=== PATIENT | female | born 1970 | race African-American/Black ===

== ENCOUNTER 2017-07-30 14:03 | Inpatient (IN) | payer SELFPAY ==
[~2017-07-30] VITALS: Ht 175.3 cm; Wt 95.1 kg
[2017-07-30 14:05] VITALS: BP 165/74; PULSE 95; RESP 20; TEMP 98.5; O2SAT 99
[2017-07-30 14:57] LABS: AUTOMATED NEUTROPHIL # 4.3 TH/MM3 (1.8-7.7); BASOPHIL # 0.3 TH/MM3 (0-0.2); BASOPHIL % 3.5 % (0.0-2.0); EOSINOPHIL # 0.4 TH/MM3 (0-0.4); EOSINOPHIL % 5.8 % (0.0-4.0); LYMPH % 23.4 % (9.0-44.0); LYMPHOCYTE # 1.7 TH/MM3 (1.0-4.8); MEAN CELL VOLUME 55.5 FL (80.0-100.0); MEAN CORPUSCULAR HEMOGLOBIN 15.5 PG (27.0-34.0); MONO % 8.8 % (0.0-8.0); NEUT % 58.5 % (16.0-70.0); PLATELET COUNT 698 TH/MM3 (150-450); RED BLOOD COUNT 2.85 MIL/MM3 (4.00-5.30); RED CELL DISTRIBUTION WIDTH 21.2 % (11.6-17.2); WHITE BLOOD COUNT 7.3 TH/MM3 (4.0-11.0)
[2017-07-30 15:02] LABS: BLOOD, URINE MOD (NEG); COMMENT (UR) CULT NOT INDICATED; CULTURE IF INDICATED CULT NOT INDICATED; GLUCOSE,URINE NEG (NEG); KETONE, URINE NEG (NEG); MUCUS URINE FEW /lpf (OCC); NITRITE,URINE NEG (NEG); SQUAMOUS EPITHELIAL CELL URINE <1 /hpf (0-5); URINE COLOR YELLOW (YELLW/STRAW)
[2017-07-30 15:04] LABS: HEMO FLAGS AUTO DIFF; MEAN CORPUSCULAR HGB CONC 27.9 % (32.0-36.0)
[2017-07-30 15:06] LABS: HEMATOCRIT 15.8 % (35.0-46.0)
[2017-07-30 15:15] VITALS: BP 139/67; PULSE 89; RESP 17; TEMP 97.8; O2SAT 96
[2017-07-30] MEDS ORDERED: SODIUM CHLOR 0.9% 250 ML INJ 250 ML IV ONE (15:15)
[2017-07-30] MEDS ORDERED: SODIUM CHLOR 0.9% 1000 ML INJ 1,000 ML IV ONE (15:20)
[2017-07-30 15:28] LABS: BICARBONATE 25.2 MEQ/L (21.0-32.0); POTASSIUM 4.3 MEQ/L (3.5-5.1)
[2017-07-30 15:33] LABS: PLATELET ESTIMATE SMEAR HIGH (NORMAL); PLATELET MORPHOLOGY ENLARGED (NORMAL); SCAN/DIFF AUTO DIFF CONFIRMED
--- NOTE | 2017-07-30 17:42 | PD ---
HPI Chief Complaint: Syncope/Near-Syncope Time Seen by Provider: 14:59 Travel History International Travel<30 days: No Contact w/Intl Traveler<30days: No Traveled to known affect area: No History of Present Illness HPI 47-year-old female presents to emergency department complaining of multiple syncopal episodes for 3-4 months. Patient states that today she was on the playground today and started having blurred vision and dizziness and passed out. She believes she was out for a few seconds. States that she has lightheadedness and blurred vision as the usual symptoms prior to passing out. Patient denies fever or chills. She says she does have increased shortness of breath with exertion. Patient says she has been "bleeding for a year". Patient says that she has had vaginal bleeding that has been evaluated by her primary care physician. She was not able follow-up for this. Patient denies fever, chills, chest pain, abdominal pain. States that she has a history of hypertension that is controlled with medication. PFSH Past Medical History Medical History: Denies Significant Hx Diminished Hearing: No Tetanus Vaccination: > 5 Years Influenza Vaccination: No ?: Not Tubal Ligation: Yes Past Surgical History Gynecologic Surgery: Yes Social History Alcohol Use: No Tobacco Use: No Substance Use: No Allergies-Medications (Allergen,Severity, Reaction): Coded Allergies: No Known Allergies (Verified Allergy, Unknown, 07/30/17) Reported Meds & Prescriptions Reported Meds & Active Scripts Active No Active Prescriptions or Reported Medications Review of Systems Except as stated in HPI: all other systems reviewed are Neg Physical Exam Narrative GENERAL: Well-developed well-nourished in no apparent distress SKIN: Focused skin assessment warm/dry. HEAD: Atraumatic. Normocephalic. EYES: Pupils equal and round. No scleral icterus. No injection or drainage. ENT: No nasal bleeding or discharge. Mucous membranes pink and moist. NECK: Trachea midline. No JVD. CARDIOVASCULAR: Regular rate and rhythm. No murmur appreciated. RESPIRATORY: No accessory muscle use. Clear to auscultation. Breath sounds equal bilaterally. GASTROINTESTINAL: Abdomen soft, non-tender, nondistended. Hepatic and splenic margins not palpable. MUSCULOSKELETAL: No obvious deformities. No clubbing. No cyanosis. No edema. NEUROLOGICAL: Awake and alert. No obvious cranial nerve deficits. Motor grossly within normal limits. Normal speech. PSYCHIATRIC: Appropriate mood and affect; insight and judgment normal. Data Data Last Documented VS Vital Signs Date Time Temp Pulse Resp B/P (MAP) Pulse Ox O2 Delivery O2 Flow Rate FiO2 07/30/17 15:15 97.8 89 17 139/67 (91) 96 Room Air Orders Orders Electrocardiogram (07/30/17 ) Complete Blood Count With Diff (07/30/17 14:13) Basic Metabolic Panel (Bmp) (07/30/17 14:13) Urinalysis - C+S If Indicated (07/30/17 14:32) Type And Screen (07/30/17 15:07) Red Blood Cells (Rbc) (07/30/17 15:07) Blood Product Administration (07/30/17 15:07) Sodium Chlor 0.9% 250 Ml Inj (Ns 250 Ml (07/30/17 15:15) Sodium Chlor 0.9% 1000 Ml Inj (Ns 1000 M (07/30/17 15:20) Admit To Inpatient (07/30/17 ) Vital Signs (Adult) KEYSHAWN.Q4H (07/30/17 16:58) Activity Oob With Assistance (07/30/17 16:58) Diet Regular Basic (07/30/17 Dinner) Resp Oxygen Rolando C Titrat 1-4 L (07/30/17 ) Inpatient Certification (07/30/17 ) Admit Order (Ed Use Only) (07/30/17 17:01) Labs Laboratory Tests Test 07/30/17 14:30 07/30/17 14:33 White Blood Count 7.3 TH/MM3 Red Blood Count 2.85 MIL/MM3 Hemoglobin 4.4 GM/DL Hematocrit 15.8 % Mean Corpuscular Volume 55.5 FL Mean Corpuscular Hemoglobin 15.5 PG Mean Corpuscular Hemoglobin Concent 27.9 % Red Cell Distribution Width 21.2 % Platelet Count 698 TH/MM3 Mean Platelet Volume 8.2 FL Neutrophils (%) (Auto) 58.5 % Lymphocytes (%) (Auto) 23.4 % Monocytes (%) (Auto) 8.8 % Eosinophils (%) (Auto) 5.8 % Basophils (%) (Auto) 3.5 % Neutrophils # (Auto) 4.3 TH/MM3 Lymphocytes # (Auto) 1.7 TH/MM3 Monocytes # (Auto) 0.6 TH/MM3 Eosinophils # (Auto) 0.4 TH/MM3 Basophils # (Auto) 0.3 TH/MM3 CBC Comment AUTO DIFF Differential Comment AUTO DIFF CONFIRMED Platelet Estimate HIGH Platelet Morphology Comment ENLARGED Blood Urea Nitrogen 5 MG/DL Creatinine 0.59 MG/DL Random Glucose 134 MG/DL Calcium Level 9.1 MG/DL Sodium Level 137 MEQ/L Potassium Level 4.3 MEQ/L Chloride Level 104 MEQ/L Carbon Dioxide Level 25.2 MEQ/L Anion Gap 8 MEQ/L Estimat Glomerular Filtration Rate 131 ML/MIN Urine Color YELLOW Urine Turbidity CLEAR Urine pH 6.0 Urine Specific [place] 1.015 Urine Protein TRACE mg/dL Urine Glucose (UA) NEG mg/dL Urine Ketones NEG mg/dL Urine Occult Blood MOD Urine Nitrite NEG Urine Bilirubin NEG Urine Urobilinogen LESS THAN 2.0 MG/DL Urine Leukocyte Esterase LARGE Urine RBC 17 /hpf Urine WBC 6 /hpf Urine Squamous Epithelial Cells <1 /hpf Urine Mucus FEW /lpf Microscopic Urinalysis Comment CULT NOT INDICATED MDM Medical Decision Making Medical Screen Exam Complete: Yes Emergency Medical Condition: Yes Differential Diagnosis Anemia, dehydration, metabolic disturbance Narrative Course 47-year-old female presents to emergency department complaining of multiple syncopal episodes for 3-4 months. Patient states that today she was on the playground today and started having blurred vision and dizziness and passed out. She believes she was out for a few seconds. States that she has lightheadedness and blurred vision as the usual symptoms prior to passing out. Patient denies fever or chills. She says she does have increased shortness of breath with exertion. Patient says she has been "bleeding for a year". Patient says that she has had vaginal bleeding that has been evaluated by her primary care physician. She was not able follow-up for this. Patient denies fever, chills, chest pain, abdominal pain. States that she has a history of hypertension that is controlled with medication. Vital signs stable Laboratory Tests Test 07/30/17 14:30 07/30/17 14:33 White Blood Count 7.3 TH/MM3 Red Blood Count 2.85 MIL/MM3 Hemoglobin 4.4 GM/DL Hematocrit 15.8 % Mean Corpuscular Volume 55.5 FL Mean Corpuscular Hemoglobin 15.5 PG Mean Corpuscular Hemoglobin Concent 27.9 % Red Cell Distribution Width 21.2 % Platelet Count 698 TH/MM3 Mean Platelet Volume 8.2 FL Neutrophils (%) (Auto) 58.5 % Lymphocytes (%) (Auto) 23.4 % Monocytes (%) (Auto) 8.8 % Eosinophils (%) (Auto) 5.8 % Basophils (%) (Auto) 3.5 % Neutrophils # (Auto) 4.3 TH/MM3 Lymphocytes # (Auto) 1.7 TH/MM3 Monocytes # (Auto) 0.6 TH/MM3 Eosinophils # (Auto) 0.4 TH/MM3 Basophils # (Auto) 0.3 TH/MM3 CBC Comment AUTO DIFF Differential Comment AUTO DIFF CONFIRMED Platelet Estimate HIGH Platelet Morphology Comment ENLARGED Blood Urea Nitrogen 5 MG/DL Creatinine 0.59 MG/DL Random Glucose 134 MG/DL Calcium Level 9.1 MG/DL Sodium Level 137 MEQ/L Potassium Level 4.3 MEQ/L Chloride Level 104 MEQ/L Carbon Dioxide Level 25.2 MEQ/L Anion Gap 8 MEQ/L Estimat Glomerular Filtration Rate 131 ML/MIN Urine Color YELLOW Urine Turbidity CLEAR Urine pH 6.0 Urine Specific [place] 1.015 Urine Protein TRACE mg/dL Urine Glucose (UA) NEG mg/dL Urine Ketones NEG mg/dL Urine Occult Blood MOD Urine Nitrite NEG Urine Bilirubin NEG Urine Urobilinogen LESS THAN 2.0 MG/DL Urine Leukocyte Esterase LARGE Urine RBC 17 /hpf Urine WBC 6 /hpf Urine Squamous Epithelial Cells <1 /hpf Urine Mucus FEW /lpf Microscopic Urinalysis Comment CULT NOT INDICATED Patient has significant anemia. I presented the treatment plan for the patient and she refused blood transfusions multiple times. Upon admission patient finally agreed and she will be admitted for observation and blood transfusion. Patient was stable upon admission for observation. Thank you Dr. Viramontes for taking this patient. Diagnosis Primary Impression: Anemia Qualified Codes: D62 - Acute posthemorrhagic anemia Admitting Information Admitting Physician Requests: Observation Scripts No Active Prescriptions or Reported Meds Condition: Stable Gema Gomez Jul 30, 2017 17:42
--- NOTE | 2017-07-30 18:25 | HHI.HP ---
HPI Service Family Medicine Primary Care Physician No Primary Care Physician Admission Diagnosis dizziness, anemia Diagnoses: International Travel<30 Days: No Contact w/Intl Traveler<30days: No Known Affected Area: No History of Present Illness Mrs. Randall is a 47 y/o F presenting to the ED with vaginal bleeding and fatigue. Patient reports 1-year of abnormal vaginal bleeding using up to 8-12 pads daily. She states the bleeding has been constant so much that she is unaware when she is having her cycle. She also endorses passing clots up to baseball size intermittently with her bleeding. She also reports a sharp right- sided groin pain up to 6 out of 10 on the pain scale, but does not endorse pain currently. She was previously seen [facility] the [facility] for a routine Pap smear, and then was referred to the [facility] due to abnormal cervix on exam. She was given orders for A routine ultrasound with a Pap completed at the [facility] which showed no intraepithelial lesion and was negative for HPV. Ultrasound was concerning for possible cervical mass with MRI recommended. However, patient was unable to be seen for reevaluation at the [facility] due to financial constraints. Today she presents with 1 week of severe fatigue with 2 falls. She states that she has been dizzy every day this week and had a fall on Wednesday and today before presenting to the ED. The fall and Wednesday she lost consciousness for approximately 2-3 minutes with her fall today resulting in a loss of consciousness for approximately 1 minute. Today she fell while changing clothes onto her bed and then ultimately landed on her left shoulder and hip. Her only other complaint is nausea throughout this entire time frame with intermittent episodes of nonbloody vomiting she does report that she has been taking [id number] iron supplements but is unsure of the dosage. Otherwise she has no complaints and denies any fevers, diaphoretic episodes, chest pain, shortness of breath, or calf tenderness. Patient does report a 10 pound weight loss over the past week. (Christiano Viramontes MD R2) Review of Systems Constitutional: COMPLAINS OF: Weight loss (10lbs over last week ), Dizziness, DENIES: Fever Eyes: COMPLAINS OF: Blurred vision, DENIES: Double Vision Ears, nose, mouth, throat: COMPLAINS OF: Throat pain, DENIES: Running Nose Respiratory: COMPLAINS OF: Cough, Sputum production, Shortness of breath Cardiovascular: COMPLAINS OF: Dyspnea on Exertion, DENIES: Chest pain Gastrointestinal: COMPLAINS OF: Nausea, Vomiting, DENIES: Abdominal pain, Constipation, Diarrhea Genitourinary: COMPLAINS OF: Abnormal vaginal bleeding, DENIES: Dysuria Musculoskeletal: DENIES: Joint pain, Back pain Integumentary: DENIES: Rash Hematologic/lymphatic: DENIES: Lymphadenopathy Immunologic/allergic: DENIES: Urticaria Neurologic: COMPLAINS OF: Headache Psychiatric: DENIES: Mood changes (Christiano Viramontes MD R2) Past Family Social History Past Medical History Denies any PMHx 4 uncomplicated SVDs at full term 1 miscarriage <20weeks, last Tubal ligation Cervical biopsy 1988, negative Past Surgical History Tubal Ligation Cervical Biopsy (Christiano Viramontes MD R2) Allergies: Coded Allergies: LON Inhibitors (Verified Allergy, Severe, Angioedema , 07/31/17) Family History Mother - healthy, living Father - CHF, Brother - , DM Social History Lives with daughter and 3 grandchildren in a house. Tobacco - No reported history Alcohol - No reported history Illicit - No reported history (Christiano Viramontes MD R2) Physical Exam Vital Signs Vital Signs Date Time Temp Pulse Resp B/P (MAP) Pulse Ox O2 Delivery O2 Flow Rate FiO2 07/30/17 15:15 97.8 89 17 139/67 (91) 96 Room Air 07/30/17 14:05 98.5 95 20 165/74 (104) 99 Room Air Physical Exam GENERAL: Well-nourished, well-developed patient lying in bed in no acute distress. SKIN: Pale, cool, and dry. No rash. HEENT: Atraumatic, normocephalic with EOMI. PERRLA. Scleral icterus slightly pale. Mucous membranes dry. No rhinorrhea. No LAD or thyroid abnormality appreciated. Subtle JVD appreciated upon inspection. CARDIOVASCULAR: Regular rate and rhythm. 2/6 systolic ejection murmur likely secondary to flow murmur consistent with severe anemia. RESPIRATORY: Clear to auscultation bilaterally with no CRW. No increased work of breathing. GASTROINTESTINAL: Abdomen soft, nondistended with positive bowel sounds. Patient with tenderness to palpation in the lower 2 quadrants and the suprapubic area. No hepatosplenomegaly appreciated. MUSCULOSKELETAL: No cyanosis or edema. Strength grossly WNL. Left shoulder: Range of motion intact, but movement does elicit pain. No trauma on inspection. No loss of sensation with 2+ pulses. Left hip: No trauma on inspection without hematoma. Patient ambulating well. No loss of sensation with 2+ pulses. BACK: Nontender without obvious deformity. No CVA tenderness. NEURO/PSYCH: Afocal. Awake, alert, and oriented x3. Normal speech and judgment. Laboratory Laboratory Tests Test 07/30/17 14:30 07/30/17 14:33 White Blood Count 7.3 Red Blood Count 2.85 Hemoglobin 4.4 Hematocrit 15.8 Mean Corpuscular Volume 55.5 Mean Corpuscular Hemoglobin 15.5 Mean Corpuscular Hemoglobin Concent 27.9 Red Cell Distribution Width 21.2 Platelet Count 698 Mean Platelet Volume 8.2 Neutrophils (%) (Auto) 58.5 Lymphocytes (%) (Auto) 23.4 Monocytes (%) (Auto) 8.8 Eosinophils (%) (Auto) 5.8 Basophils (%) (Auto) 3.5 Neutrophils # (Auto) 4.3 Lymphocytes # (Auto) 1.7 Monocytes # (Auto) 0.6 Eosinophils # (Auto) 0.4 Basophils # (Auto) 0.3 CBC Comment AUTO DIFF Differential Comment AUTO DIFF CONFIRMED Platelet Estimate HIGH Platelet Morphology Comment ENLARGED Blood Urea Nitrogen 5 Creatinine 0.59 Random Glucose 134 Calcium Level 9.1 Sodium Level 137 Potassium Level 4.3 Chloride Level 104 Carbon Dioxide Level 25.2 Anion Gap 8 Estimat Glomerular Filtration Rate 131 Urine Color YELLOW Urine Turbidity CLEAR Urine pH 6.0 Urine Specific [place] 1.015 Urine Protein TRACE Urine Glucose (UA) NEG Urine Ketones NEG Urine Occult Blood MOD Urine Nitrite NEG Urine Bilirubin NEG Urine Urobilinogen LESS THAN 2.0 Urine Leukocyte Esterase LARGE Urine RBC 17 Urine WBC 6 Urine Squamous Epithelial Cells <1 Urine Mucus FEW Microscopic Urinalysis Comment CULT NOT INDICATED (Christiano Viramontes MD R2) Result Diagram: 07/30/17 1430 07/30/17 1430 Caprini VTE Risk Assessment Caprini VTE Risk Assessment: Mod/High Risk (score >= 2) Caprini Risk Assessment Model Point Value = 1 Point Value = 2 Point Value = 3 Point Value = 5 Age 41-60 Minor surgery BMI > 25 kg/m2 Swollen legs Varicose veins or History of unexplained or recurrent spontaneous Oral contraceptives or hormone replacement Sepsis (< 1 month) Serious lung disease, including pneumonia (< 1 month) Abnormal pulmonary function Acute myocardial infarction Congestive heart failure (< 1 month) History of inflammatory bowel disease Medical patient at bed rest Age 61-74 Arthroscopic surgery Major open surgery (> 45 min) Laparoscopic surgery (> 45 min) Malignancy Confined to bed (> 72 hours) Immobilizing plaster cast Central venous access Age >= 75 History of VTE Family history of VTE Factor V Leiden Prothrombin [id number] Lupus anticoagulant Anticardiolipin antibodies Elevated serum homocysteine Heparin-induced thrombocytopenia Other congenital or acquired thrombophilia Stroke (< 1 month) Elective arthroplasty Hip, pelvis, or leg fracture Acute spinal cord injury (< 1 month) Prophylaxis Regimen Total Risk Factor Score Risk Level Prophylaxis Regimen 0-1 Low Early ambulation 2 Moderate Order ONE of the following: *Sequential Compression Device (SCD) *Heparin 5000 units SQ BID 3-4 Higher Order ONE of the following medications: *Heparin 5000 units SQ TID *Enoxaparin/Lovenox 40 mg SQ daily (WT < 150 kg, CrCl > 30 mL/min) *Enoxaparin/Lovenox 30 mg SQ daily (WT < 150 kg, CrCl > 10-29 mL/min) *Enoxaparin/Lovenox 30 mg SQ BID (WT < 150 kg, CrCl > 30 mL/min) AND/OR *Sequential Compression Device (SCD) 5 or more Highest Order ONE of the following medications: *Heparin 5000 units SQ TID (Preferred with Epidurals) *Enoxaparin/Lovenox 40 mg SQ daily (WT < 150 kg, CrCl > 30 mL/min) *Enoxaparin/Lovenox 30 mg SQ daily (WT < 150 kg, CrCl > 10-29 mL/min) *Enoxaparin/Lovenox 30 mg SQ BID (WT < 150 kg, CrCl > 30 mL/min) AND *Sequential Compression Device (SCD) (Christiano Viramontes MD R2) Assessment and Plan Assessment and Plan Mrs. Randall is a 47 y/o admitted for symptomatic anemia requiring blood transfusion. Code Status Full Code Discussed Condition With Mrs. Gomez, DUNG PA Dr. Pederson (Christiano Viramontes MD R2) Attending Attestation Patient seen and examined. Case reviewed and discussed with the resident team. Agree with plan of care as discussed with me and documented in the resident note. met pt in ED with Dr Viramontes. poor woman is so anemic she cannot function without blood (Monika Pederson MD) Problem List: (1) Anemia ICD Codes: D64.9 - Anemia, unspecified Status: Acute Plan: Patient admitted for symptomatic anemia secondary to abnormal vaginal bleeding Imaging/studies/orders: -CBC: H/H 4.4/15.8, MCV 55, platelets 698 -Iron profile ordered -CMP: Within normal limits -Type and screen -2 units PRBC ordered with repeat H/H -Normal saline at 100 mL per hour -Ultrasound: Enlarged heterogeneous uterus with leiomyomatous change. Decreased echogenicity and lack of definition of the cervix. A mass could have this appearance. This area measures approximately 4.6 cm in greatest dimension. This area could be better defined with a pelvic MRI. -Pap smear: Negative for intraepithelial lesion or malignancy. Reactive cellular changes associated with repair. HPV screen negative. -Pelvic MRI ordered (2) Fall ICD Codes: W19.XXXA - Unspecified fall, initial encounter Status: Acute Plan: Patient with initial fall due to symptomatic anemia onto the left side -Left shoulder x-ray: Pending -Left hip x-ray: Pending (3) Nutrition, metabolism, and development symptoms ICD Codes: R63.8 - Other symptoms and signs concerning food and fluid intake Status: Acute Plan: Fluids: Normal saline at 100 mL per hour Diet: Regular diet as tolerated Electrolytes: Within normal limits (4) Medical contraindication to deep vein thrombosis (DVT) prophylaxis ICD Codes: Z53.09 - Procedure and treatment not carried out because of other contraindication Status: Acute Plan: Patient currently admitted for symptomatic anemia secondary to vaginal bleeding, hold pharmacologic DVT prophylaxis at this time SCDs (Christiano Viramontes MD R2) Problem Qualifiers (1) Anemia: Qualified Codes: D62 - Acute posthemorrhagic anemia (2) Fall: Qualified Codes: W19.XXXA - Unspecified fall, initial encounter Christiano Viramontes MD R2 Jul 30, 2017 18:25 Monika Pederson MD Jul 31, 2017 16:32
[2017-07-30] MEDS ORDERED: NALOXONE HCL 0.4 MG/ML AMP IV PUSH PRN (18:45)
[2017-07-30] MEDS ORDERED: ACETAMINOPHEN 325 MG TAB PO PRN (18:45)
[2017-07-30] MEDS ORDERED: ONDANSETRON HCL 4 MG/2 ML VIAL IVP PRN (18:45)
[2017-07-30] MEDS ORDERED: DOCUSATE SODIUM 50 MG/SENNA 8.6 MG TAB PO PRN (18:45)
[2017-07-30] MEDS ORDERED: SODIUM CHLORIDE 0.9% FLUSH 10 ML FLUSH IV FLUSH PRN (18:45)
[2017-07-30 19:12] VITALS: BP 154/71; PULSE 98; RESP 18; O2SAT 100
--- NOTE | 2017-07-30 19:21 | PD ---
Data Data Last Documented VS Vital Signs Date Time Temp Pulse Resp B/P (MAP) Pulse Ox O2 Delivery O2 Flow Rate FiO2 07/30/17 15:15 97.8 89 17 139/67 (91) 96 Room Air Orders Orders Electrocardiogram (07/30/17 ) Complete Blood Count With Diff (07/30/17 14:13) Basic Metabolic Panel (Bmp) (07/30/17 14:13) Urinalysis - C+S If Indicated (07/30/17 14:32) Type And Screen (07/30/17 15:07) Red Blood Cells (Rbc) (07/30/17 15:07) Blood Product Administration (07/30/17 15:07) Sodium Chlor 0.9% 250 Ml Inj (Ns 250 Ml (07/30/17 15:15) Sodium Chlor 0.9% 1000 Ml Inj (Ns 1000 M (07/30/17 15:20) Admit To Inpatient (07/30/17 ) Vital Signs (Adult) KEYSHAWN.Q4H (07/30/17 16:58) Activity Oob With Assistance (07/30/17 16:58) Diet Regular Basic (07/30/17 Dinner) Resp Oxygen Rolando C Titrat 1-4 L (07/30/17 ) Inpatient Certification (07/30/17 ) Admit Order (Ed Use Only) (07/30/17 17:01) Labs Laboratory Tests Test 07/30/17 14:30 07/30/17 14:33 White Blood Count 7.3 TH/MM3 Red Blood Count 2.85 MIL/MM3 Hemoglobin 4.4 GM/DL Hematocrit 15.8 % Mean Corpuscular Volume 55.5 FL Mean Corpuscular Hemoglobin 15.5 PG Mean Corpuscular Hemoglobin Concent 27.9 % Red Cell Distribution Width 21.2 % Platelet Count 698 TH/MM3 Mean Platelet Volume 8.2 FL Neutrophils (%) (Auto) 58.5 % Lymphocytes (%) (Auto) 23.4 % Monocytes (%) (Auto) 8.8 % Eosinophils (%) (Auto) 5.8 % Basophils (%) (Auto) 3.5 % Neutrophils # (Auto) 4.3 TH/MM3 Lymphocytes # (Auto) 1.7 TH/MM3 Monocytes # (Auto) 0.6 TH/MM3 Eosinophils # (Auto) 0.4 TH/MM3 Basophils # (Auto) 0.3 TH/MM3 CBC Comment AUTO DIFF Differential Comment AUTO DIFF CONFIRMED Platelet Estimate HIGH Platelet Morphology Comment ENLARGED Blood Urea Nitrogen 5 MG/DL Creatinine 0.59 MG/DL Random Glucose 134 MG/DL Calcium Level 9.1 MG/DL Sodium Level 137 MEQ/L Potassium Level 4.3 MEQ/L Chloride Level 104 MEQ/L Carbon Dioxide Level 25.2 MEQ/L Anion Gap 8 MEQ/L Estimat Glomerular Filtration Rate 131 ML/MIN Urine Color YELLOW Urine Turbidity CLEAR Urine pH 6.0 Urine Specific [place] 1.015 Urine Protein TRACE mg/dL Urine Glucose (UA) NEG mg/dL Urine Ketones NEG mg/dL Urine Occult Blood MOD Urine Nitrite NEG Urine Bilirubin NEG Urine Urobilinogen LESS THAN 2.0 MG/DL Urine Leukocyte Esterase LARGE Urine RBC 17 /hpf Urine WBC 6 /hpf Urine Squamous Epithelial Cells <1 /hpf Urine Mucus FEW /lpf Microscopic Urinalysis Comment CULT NOT INDICATED MDM Supervised Visit with THERESE: Yes Narrative Course The history, exam, and medical decision-making in the associated midlevel provider note were completed with my assistance. I reviewed and agree with the findings presented. I attest that I had a [id number] encounter with the patient on the same day, and personally performed and documented my assessment and findings in the medical record. *My assessment and Findings: This is a patient who presents to the emergency department with syncope. She had an ultrasound at the outpatient clinic demonstrating a cervical mass and a thickened endometrium. She has a hemoglobin of 4.4 today with an MCV of 55 indicating this is chronic. She says she's been bleeding for a year. Initially she refused a blood transfusion but she was seen by the resident that saw her at clinic and she was convinced of the medical benefits. Patient will be admitted for transfusion and gynecologic evaluation. Diagnosis Primary Impression: Anemia Scripts No Active Prescriptions or Reported Meds Condition: Stable Marlin Henry MD Jul 30, 2017 19:21
[2017-07-30 20:48] VITALS: BP 135/68; PULSE 94; RESP 18; TEMP 98.3; O2SAT 100
[2017-07-30 23:03] VITALS: BP 123/73; PULSE 96; RESP 18; TEMP 99.9; O2SAT 100
[2017-07-30] MEDS: SODIUM CHLOR 0.9% 1000 ML INJ 1,000 ML IV SCH (23:09)
[2017-07-30] MEDS: SODIUM CHLORIDE 0.9% FLUSH 10 ML FLUSH IV FLUSH SCH (23:13)
[2017-07-30 23:20] VITALS: BP 136/66; PULSE 97; RESP 20; TEMP 99.4; O2SAT 100
[2017-07-31] VITALS (13 sets, daily range): BP systolic 116–156; BP diastolic 57–84; PULSE 53–95; RESP 17–20; TEMP 97.4–99.5; O2SAT 98–100
[2017-07-31] MEDS: SODIUM CHLOR 0.9% 1000 ML INJ 1,000 ML IV SCH ×2 (04:50→15:00)
[2017-07-31 07:51] LABS: AUTOMATED NEUTROPHIL # 4.6 TH/MM3 (1.8-7.7); BASOPHIL # 0.2 TH/MM3 (0-0.2); BASOPHIL % 2.3 % (0.0-2.0); EOSINOPHIL # 0.3 TH/MM3 (0-0.4); EOSINOPHIL % 4.4 % (0.0-4.0); LYMPHOCYTE # 1.8 TH/MM3 (1.0-4.8); MEAN CELL VOLUME 60.9 FL (80.0-100.0); MEAN CORPUSCULAR HEMOGLOBIN 18.2 PG (27.0-34.0); MONO % 9.5 % (0.0-8.0); NEUT % 59.8 % (16.0-70.0); PLATELET COUNT 575 TH/MM3 (150-450); RED CELL DISTRIBUTION WIDTH 29.4 % (11.6-17.2); WHITE BLOOD COUNT 7.6 TH/MM3 (4.0-11.0)
[2017-07-31 07:59] LABS: PROTHROMBIN TIME - PATIENT 10.4 SEC (9.8-11.6)
[2017-07-31] MEDS: SODIUM CHLORIDE 0.9% FLUSH 10 ML FLUSH IV FLUSH SCH ×2 (08:04→21:00)
[2017-07-31 08:06] LABS: MEAN CORPUSCULAR HGB CONC 29.9 % (32.0-36.0)
[2017-07-31 08:07] LABS: HEMO FLAGS AUTO DIFF
[2017-07-31 08:08] LABS: HEMATOCRIT 18.9 % (35.0-46.0)
[2017-07-31] MEDS ORDERED: oxyCODONE/ACETAMINOPHEN 5 MG/325 MG TAB PO PRN (08:15)
[2017-07-31] MEDS ORDERED: oxyCODONE/ACETAMINOPHEN 10 MG/325 MG TAB PO PRN (08:15)
[2017-07-31] MEDS ORDERED: NALOXONE HCL 0.4 MG/ML AMP IV PUSH PRN (08:15)
[2017-07-31] MEDS ORDERED: MORPHINE SULFATE 4 MG/ML INJ IV PUSH PRN (08:15)
[2017-07-31] MEDS ORDERED: ACETAMINOPHEN 325 MG TAB PO PRN (08:15)
[2017-07-31 08:19] LABS: ALT (GPT) 9 U/L (10-53); ANION GAP 6 MEQ/L (5-15); AST (GOT) 14 U/L (15-37); BICARBONATE 26.1 MEQ/L (21.0-32.0); BLOOD UREA NITROGEN 6 MG/DL (7-18); CHLORIDE 105 MEQ/L (98-107); GLOMERULAR FILTRATION RATE 131 ML/MIN (>89); SODIUM (NA) 137 MEQ/L (136-145)
[2017-07-31 08:24] LABS: ALKALINE PHOSPHATASE 46 U/L (45-117); BETA HCG QUANT LESS THAN 1 MIU/ML (0-5); TOTAL BILIRUBIN ADULT 0.9 MG/DL (0.2-1.0)
[2017-07-31] MEDS ORDERED: SODIUM CHLOR 0.9% 250 ML INJ 250 ML IV ONE (08:45)
[2017-07-31 08:48] LABS: OVALOCYTES 1+ (NORMAL); POLYCHROMASIA 3.1 % (0.0-1.9); TEARDROP RBCS 1+ (NORMAL)
[2017-07-31 08:49] LABS: PLATELET ESTIMATE SMEAR HIGH (NORMAL); PLATELET MORPHOLOGY NORMAL (NORMAL); SCAN/DIFF AUTO DIFF CONFIRMED
--- NOTE | 2017-07-31 08:54 | RADRPT ---
EXAM DATE/TIME: 07/31/2017 08:37 [facility] COMPARISON: No previous studies available for comparison. INDICATIONS : Patient complains of left shoulder pain status post fall. MEDICAL HISTORY : None. SURGICAL HISTORY : None. ENCOUNTER: Initial ACUITY: 2 days PAIN SCORE: 2/10 LOCATION: Left Shoulder FINDINGS: Small rounded calcified density noted lateral to the humeral head. Osseous structures are otherwise i ntact. The glenohumeral and acromioclavicular joints are maintained. Bony mineralization is normal. CONCLUSION: 1. There is small rounded calcified density noted lateral to the humeral head. Differential considera tions include avulsion fracture versus calcific tendinosis although this does not have the typical ap pearance of an avulsion fracture. Jesse Townsend MD on July 31, 2017 at 8:48 Board Certified Radiologist. This report was verified electronically.
--- NOTE | 2017-07-31 08:57 | RADRPT ---
EXAM DATE/TIME: 07/31/2017 08:34 [facility] COMPARISON: No previous studies available for comparison. INDICATIONS : Patient complains of left hip pain status post fall. MEDICAL HISTORY : None. SURGICAL HISTORY : None. ENCOUNTER: Initial ACUITY: 2 days PAIN SCORE: 2/10 LOCATION: Left Hip FINDINGS: A lateral view of the left hip with AP pelvis was obtained. No definite fractures, dislocations, lyt ic or sclerotic lesions are seen. 2 cm calcified density projecting over the mid sacrum may reflect a calcified uterine leiomyoma. The joint space is well maintained. CONCLUSION: 1. No acute fracture or dislocation. 2. Suspect 2 cm calcified uterine leiomyoma. Jesse Townsend MD on July 31, 2017 at 8:54 Board Certified Radiologist. This report was verified electronically.
[2017-07-31] MEDS ORDERED: GADODIAMIDE PF 287 MG/ML 20 ML VIAL (for RAD MRI) IV PUSH ONE (09:12)
[2017-07-31 09:14] LABS: APTT (PATIENT) 20.5 SEC (24.3-30.1)
--- NOTE | 2017-07-31 09:54 | RADRPT ---
EXAM DATE/TIME: 07/31/2017 08:51 [place] COMPARISON: No previous studies available for comparison. INDICATIONS : Mass. Lesion on cervix. CONTRAST: 16 cc Omniscan (gadodiamide) IV MEDICAL HISTORY : None. SURGICAL HISTORY : Tubal ligation. ENCOUNTER: Initial ACUITY: 1 day PAIN SCORE: 0/10 LOCATION: pelvis TECHNIQUE: Multiplanar, multisequence magnetic resonance imaging of the pelvis was performed. FINDINGS: REPRODUCTIVE: Numerous uterine myometrial masses predominantly demonstrating intermediate T1 and low T2 signal. Mild cystic degeneration of the dominant mass in the posterior uterine centered in the uterine body. This mass measures 8.2 x 6.5 x 8.5 cm and is intramural. There is a second dominant mesa bserosal mass in the right lower uterine segment which is more horizontally oriented measuring 2.4 x 6.6 x 10.4 cm. This appears subserosal and demonstrates intermediate signal on T2 sequences. There is a grouping of 3 intramural myometrial masses measuring 3.6 x 3.6 cm, 2.1 x 2.6 cm, and 2.1 x 2.0 cm in the anterior mid uterine body. There is a 2.2 x 2.5 cm there mass which appears subserosal near th e fundus. BLADDER: No wall thickening or mass. RETROPERITONEUM: There is no lymphadenopathy. Vascular structures are within normal limits. BOWEL/MESENTERY: Visualized small and large bowel demonstrates no acute abnormality. There is no free fluid. INGUINAL: No lymphadenopathy or hernia. MUSCULOSKELETAL: Bone marrow signal is within normal limits. CONCLUSION: 1. Enlarged leiomyomatous uterus with abdominal intramural leiomyomas. The largest is in the uterine body measuring up to 8.2 x 6.5 x 8.5 cm. Second largest is in the right lower uterine segment and is more horizontal in orientation measuring 2.4 x 6.6 x 10.4 cm with a dominant subserosal component. 2. No significant pelvic adenopathy Jesse Townsend MD on July 31, 2017 at 9:25 Board Certified Radiologist. This report was verified electronically.
[2017-07-31] MEDS: diphenhydrAMINE HCL 25 MG CAP PO PRN ×2 (11:03→20:15)
[2017-07-31] MEDS: ACETAMINOPHEN 325 MG TAB PO PRN ×2 (11:04→20:16)
--- NOTE | 2017-07-31 14:06 | EKG ---
Date Performed: 07/30/2017 Time Performed: 14:22:29 PTAGE: 47 years EKG: Sinus rhythm WITH FREQUENT SUPRAVENTRICULAR PREMATURE COMPLEXES Poor initial anterior forces in V1-V3, probable n ormal variant Nonspecific T-wave change NO PREVIOUS TRACING DOCTOR: Estuardo Babin Interpretating Date/Time 07/31/2017 14:05:46
--- NOTE | 2017-07-31 16:22 | HHI.HP ---
HPI Service Family Medicine Primary Care Physician No Primary Care Physician Admission Diagnosis dizziness, anemia Diagnoses: (1) Anemia Diagnosis: Principal (2) Fall Diagnosis: Principal (3) Nutrition, metabolism, and development symptoms Diagnosis: Principal (4) Medical contraindication to deep vein thrombosis (DVT) prophylaxis Diagnosis: Principal International Travel<30 Days: No Contact w/Intl Traveler<30days: No Known Affected Area: No History of Present Illness Mrs. Randall is a 47 y/o F presenting to the ED with vaginal bleeding and fatigue. Patient reports 1-year of abnormal vaginal bleeding using up to 8-12 pads daily. She states the bleeding has been constant so much that she is unaware when she is having her cycle. She also endorses passing clots up to baseball size intermittently with her bleeding. She also reports a sharp right- sided groin pain up to 6 out of 10 on the pain scale, but does not endorse pain currently. [facility] for a routine Pap smear, and then was referred to the [facility] due to abnormal cervix on exam. She was given orders for A routine ultrasound with a Pap completed at the [facility] which showed no intraepithelial lesion and was negative for HPV. Ultrasound was concerning for possible cervical mass with MRI recommended. However, patient was unable to be seen for reevaluation at the [facility] due to financial constraints. Today she presents with 1 week of severe fatigue with 2 falls. She states that she has been dizzy every day this week and had a fall on Wednesday and yesterday before presenting to the ED. The fall on Wednesday she lost consciousness for approximately 2-3 minutes with her second fall resulting in a loss of consciousness for approximately 1 minute. The day of admission she fell while changing clothes onto her bed and then ultimately landed on her left shoulder and hip. Her only other complaint is nausea throughout this entire time frame with intermittent episodes of nonbloody vomiting she does report that she has been taking [id number] iron supplements but is unsure of the dosage. Otherwise she has no complaints and denies any fevers, diaphoretic episodes, chest pain, shortness of breath, or calf tenderness. Patient does report a 10 pound weight loss over the past week. She was found to be profoundly anemic and overnight received 2 units of blood and felt 80% better. Her MRI shows multiple huge fibroids. She needs more blood today as her Hb is still below 6 even with the 2 units. Review of Systems Other Constitutional: COMPLAINS OF: Weight loss (10lbs over last week ), Dizziness, DENIES: Fever Eyes: COMPLAINS OF: Blurred vision, DENIES: Double Vision Ears, nose, mouth, throat: COMPLAINS OF: Throat pain, DENIES: Running Nose Respiratory: COMPLAINS OF: Cough, Sputum production, Shortness of breath Cardiovascular: COMPLAINS OF: Dyspnea on Exertion, DENIES: Chest pain Gastrointestinal: COMPLAINS OF: Nausea, Vomiting, DENIES: Abdominal pain, Constipation, Diarrhea Genitourinary: COMPLAINS OF: Abnormal vaginal bleeding, DENIES: Dysuria Musculoskeletal: DENIES: Joint pain, Back pain Integumentary: DENIES: Rash Hematologic/lymphatic: DENIES: Lymphadenopathy Immunologic/allergic: DENIES: Urticaria Neurologic: COMPLAINS OF: Headache Psychiatric: DENIES: Mood changes Past Family Social History Past Medical History Denies any PMHx 4 uncomplicated SVDs at full term 1 miscarriage <20weeks, last Tubal ligation Cervical biopsy 1988, negative Past Surgical History Tubal Ligation Cervical Biopsy Allergies: Coded Allergies: LON Inhibitors (Verified Allergy, Severe, Angioedema , 07/31/17) Family History Mother - healthy, living Father - CHF, Brother - , DM Social History Lives with daughter and 3 grandchildren in a house. Tobacco - No reported history Alcohol - No reported history Illicit - No reported history Physical Exam Vital Signs Vital Signs Date Time Temp Pulse Resp B/P (MAP) Pulse Ox O2 Delivery O2 Flow Rate FiO2 07/31/17 12:48 97.4 88 20 156/74 99 07/31/17 12:23 98.1 90 17 139/77 100 07/31/17 12:00 98.1 90 20 139/77 (97) 100 07/31/17 08:00 98.8 89 18 153/76 (101) 100 07/31/17 05:18 98.2 88 18 129/61 100 07/31/17 01:10 99.4 92 20 116/67 98 07/31/17 00:52 99.4 95 20 116/57 98 07/30/17 23:20 99.4 97 20 136/66 100 07/30/17 23:03 99.9 96 18 123/73 100 07/30/17 20:48 98.3 94 18 135/68 (90) 100 07/30/17 20:20 07/30/17 19:13 98 18 100 Room Air 07/30/17 19:12 98 18 154/71 (98) 100 Room Air Physical Exam GENERAL: Well-nourished, well-developed patient lying in bed in no acute distress. appears improved from yesterday SKIN: Pale, cool, and dry. No rash. HEENT: Atraumatic, normocephalic with EOMI. PERRLA. Scleral icterus slightly pale. Mucous membranes dry. No rhinorrhea. No LAD or thyroid abnormality appreciated. Subtle JVD appreciated upon inspection. CARDIOVASCULAR: Regular rate and rhythm. 2/6 systolic ejection murmur likely secondary to flow murmur consistent with severe anemia. RESPIRATORY: Clear to auscultation bilaterally with no CRW. No increased work of breathing. GASTROINTESTINAL: Abdomen soft, nondistended with positive bowel sounds. Patient with tenderness to palpation in the lower 2 quadrants and the suprapubic area. No hepatosplenomegaly appreciated. MUSCULOSKELETAL: No cyanosis or edema. Strength grossly WNL. Left shoulder: Range of motion intact, but movement does elicit pain. No trauma on inspection. No loss of sensation with 2+ pulses. Left hip: No trauma on inspection without hematoma. Patient ambulating well. No loss of sensation with 2+ pulses. BACK: Nontender without obvious deformity. No CVA tenderness. NEURO/PSYCH: Afocal. Awake, alert, and oriented x3. Normal speech and judgment. Laboratory Laboratory Tests Test 07/31/17 07:30 White Blood Count 7.6 Red Blood Count 3.10 Hemoglobin 5.6 Hematocrit 18.9 Mean Corpuscular Volume 60.9 Mean Corpuscular Hemoglobin 18.2 Mean Corpuscular Hemoglobin Concent 29.9 Red Cell Distribution Width 29.4 Platelet Count 575 Mean Platelet Volume 8.3 Neutrophils (%) (Auto) 59.8 Lymphocytes (%) (Auto) 24.0 Monocytes (%) (Auto) 9.5 Eosinophils (%) (Auto) 4.4 Basophils (%) (Auto) 2.3 Neutrophils # (Auto) 4.6 Lymphocytes # (Auto) 1.8 Monocytes # (Auto) 0.7 Eosinophils # (Auto) 0.3 Basophils # (Auto) 0.2 CBC Comment AUTO DIFF Differential Comment AUTO DIFF CONFIRMED Platelet Estimate HIGH Platelet Morphology Comment NORMAL Polychromasia 3.1 Tear Drop Cells 1+ Ovalocytes 1+ Prothrombin Time 10.4 Prothromb Time International Ratio 1.0 Activated Partial Thromboplast Time 20.5 Blood Urea Nitrogen 6 Creatinine 0.59 Random Glucose 98 Total Protein 6.7 Albumin 3.0 Calcium Level 8.6 Alkaline Phosphatase 46 Aspartate Amino Transf (AST/SGOT) 14 Alanine Aminotransferase (ALT/SGPT) 9 Total Bilirubin 0.9 Sodium Level 137 Potassium Level 4.0 Chloride Level 105 Carbon Dioxide Level 26.1 Anion Gap 6 Estimat Glomerular Filtration Rate 131 Human Chorionic Gonadotropin, Quant LESS THAN 1 Result Diagram: 07/31/1772907/31/17729 Caprini VTE Risk Assessment Caprini VTE Risk Assessment: Mod/High Risk (score >= 2) Caprini Risk Assessment Model Point Value = 1 Point Value = 2 Point Value = 3 Point Value = 5 Age 41-60 Minor surgery BMI > 25 kg/m2 Swollen legs Varicose veins or History of unexplained or recurrent spontaneous Oral contraceptives or hormone replacement Sepsis (< 1 month) Serious lung disease, including pneumonia (< 1 month) Abnormal pulmonary function Acute myocardial infarction Congestive heart failure (< 1 month) History of inflammatory bowel disease Medical patient at bed rest Age 61-74 Arthroscopic surgery Major open surgery (> 45 min) Laparoscopic surgery (> 45 min) Malignancy Confined to bed (> 72 hours) Immobilizing plaster cast Central venous access Age >= 75 History of VTE Family history of VTE Factor V Leiden Prothrombin [id number] Lupus anticoagulant Anticardiolipin antibodies Elevated serum homocysteine Heparin-induced thrombocytopenia Other congenital or acquired thrombophilia Stroke (< 1 month) Elective arthroplasty Hip, pelvis, or leg fracture Acute spinal cord injury (< 1 month) Prophylaxis Regimen Total Risk Factor Score Risk Level Prophylaxis Regimen 0-1 Low Early ambulation 2 Moderate Order ONE of the following: *Sequential Compression Device (SCD) *Heparin 5000 units SQ BID 3-4 Higher Order ONE of the following medications: *Heparin 5000 units SQ TID *Enoxaparin/Lovenox 40 mg SQ daily (WT < 150 kg, CrCl > 30 mL/min) *Enoxaparin/Lovenox 30 mg SQ daily (WT < 150 kg, CrCl > 10-29 mL/min) *Enoxaparin/Lovenox 30 mg SQ BID (WT < 150 kg, CrCl > 30 mL/min) AND/OR *Sequential Compression Device (SCD) 5 or more Highest Order ONE of the following medications: *Heparin 5000 units SQ TID (Preferred with Epidurals) *Enoxaparin/Lovenox 40 mg SQ daily (WT < 150 kg, CrCl > 30 mL/min) *Enoxaparin/Lovenox 30 mg SQ daily (WT < 150 kg, CrCl > 10-29 mL/min) *Enoxaparin/Lovenox 30 mg SQ BID (WT < 150 kg, CrCl > 30 mL/min) AND *Sequential Compression Device (SCD) Assessment and Plan Assessment and Plan Mrs. Randall is a 47 y/o admitted for symptomatic anemia requiring blood transfusion. Problem List: (1) Anemia ICD Codes: D64.9 - Anemia, unspecified Status: Acute Plan: Patient admitted for symptomatic anemia secondary to abnormal vaginal bleeding Imaging/studies/orders: -CBC: H/H 4.4/15.8, MCV 55, platelets 698 -Iron profile ordered -CMP: Within normal limits -Type and screen -2 units PRBC ordered with repeat H/H -Normal saline at 100 mL per hour -Ultrasound: Enlarged heterogeneous uterus with leiomyomatous change. Decreased echogenicity and lack of definition of the cervix. A mass could have this appearance. This area measures approximately 4.6 cm in greatest dimension. This area could be better defined with a pelvic MRI. -Pap smear: Negative for intraepithelial lesion or malignancy. Reactive cellular changes associated with repair. HPV screen negative. -Pelvic MRI showed multiple large fibroids will transfuse more. she would benefit greatly from a hysterectomy but can see if that is feasible. can ask case management about her getting insurance (2) Fall ICD Codes: W19.XXXA - Unspecified fall, initial encounter Status: Acute Plan: Patient with initial fall due to symptomatic anemia onto the left side -Left shoulder x-ray: Pending -Left hip x-ray: Pending (3) Nutrition, metabolism, and development symptoms ICD Codes: R63.8 - Other symptoms and signs concerning food and fluid intake Status: Acute Plan: Fluids: Normal saline at 100 mL per hour Diet: Regular diet as tolerated Electrolytes: Within normal limits (4) Medical contraindication to deep vein thrombosis (DVT) prophylaxis ICD Codes: Z53.09 - Procedure and treatment not carried out because of other contraindication Status: Acute Plan: Patient currently admitted for symptomatic anemia secondary to vaginal bleeding, hold pharmacologic DVT prophylaxis at this time SCDs Problem Qualifiers (1) Anemia: Qualified Codes: D62 - Acute posthemorrhagic anemia (2) Fall: Qualified Codes: W19.XXXA - Unspecified fall, initial encounter Monika Pederson MD Jul 31, 2017 16:22
[2017-08-01] VITALS: BP 142/72; PULSE 84; RESP 18; TEMP 98.8; O2SAT 99
[2017-08-01] MEDS: SODIUM CHLOR 0.9% 1000 ML INJ 1,000 ML IV SCH ×2 (01:00→08:04)
[2017-08-01 03:06] LABS: AUTOMATED NEUTROPHIL # 5.2 TH/MM3 (1.8-7.7); BASOPHIL # 0.2 TH/MM3 (0-0.2); BASOPHIL % 2.3 % (0.0-2.0); EOSINOPHIL # 0.5 TH/MM3 (0-0.4); EOSINOPHIL % 4.8 % (0.0-4.0); HEMATOCRIT 28.2 % (35.0-46.0); LYMPH % 30.7 % (9.0-44.0); MEAN CELL VOLUME 69.4 FL (80.0-100.0); MEAN CORPUSCULAR HEMOGLOBIN 21.7 PG (27.0-34.0); MEAN CORPUSCULAR HGB CONC 31.3 % (32.0-36.0); NEUT % 53.2 % (16.0-70.0); PLATELET COUNT 575 TH/MM3 (150-450); RED BLOOD COUNT 4.06 MIL/MM3 (4.00-5.30); RED CELL DISTRIBUTION WIDTH 31.7 % (11.6-17.2); WHITE BLOOD COUNT 9.7 TH/MM3 (4.0-11.0)
[2017-08-01 03:12] LABS: HEMO FLAGS AUTO DIFF
[2017-08-01 03:16] LABS: ALT (GPT) 10 U/L (10-53); ANION GAP 3 MEQ/L (5-15); AST (GOT) 9 U/L (15-37); BICARBONATE 29.8 MEQ/L (21.0-32.0); BLOOD UREA NITROGEN 8 MG/DL (7-18); CHLORIDE 106 MEQ/L (98-107); GLOMERULAR FILTRATION RATE 124 ML/MIN (>89); POTASSIUM 4.1 MEQ/L (3.5-5.1); SODIUM (NA) 139 MEQ/L (136-145)
[2017-08-01 03:20] LABS: ALKALINE PHOSPHATASE 48 U/L (45-117); TOTAL BILIRUBIN ADULT 0.4 MG/DL (0.2-1.0); TRANSFERRIN IRON PROFILE 292 MG/DL (200-360)
[2017-08-01 03:53] LABS: SCAN/DIFF AUTO DIFF CONFIRMED
[2017-08-01 03:54] LABS: OVALOCYTES 1+ (NORMAL)
[2017-08-01 03:55] LABS: PLATELET ESTIMATE SMEAR HIGH (NORMAL); PLATELET MORPHOLOGY NORMAL (NORMAL)
[2017-08-01 08:00] VITALS: BP 185/88; PULSE 83; RESP 16; TEMP 97.3; O2SAT 100
[2017-08-01] MEDS: SODIUM CHLORIDE 0.9% FLUSH 10 ML FLUSH IV FLUSH SCH (08:02)
[2017-08-01] MEDS ORDERED: FERR324T4 PO (08:26)
--- NOTE | 2017-08-01 08:26 | HHI.DCPOC ---
Discharge Care Plan Diagnosis: (1) Anemia (2) Fall Goals to Promote Your Health * To prevent worsening of your condition and complications * To maintain your health at the optimal level Directions to Meet Your Goals Take your medications as prescribed Follow your dietary instruction Follow activity as directed Keep your appointments as scheduled Take your immunizations and boosters as scheduled If your symptoms worsen call your PCP, if no PCP go to Urgent Care Center or Emergency Room Smoking is Dangerous to Your Health. Avoid second hand smoke Call the 24-hour hour crisis hotline for domestic abuse at Christiano Viramontes MD R2 Aug 01, 2017 08:25
--- NOTE | 2017-08-01 09:55 | HHI.FPPN ---
Subjective Remarks Patient seen and examined this morning. No acute events overnight per nursing staff. Patient currently reporting headache up to 6 out of 10 that started approximately 1 hour ago. Patient's most recent pressure elevated to 185/80 today, recheck during visit and blood pressure was 166/95. Other than her headache patient reports no other complaints and denies any fevers, chills, shortness of breath, chest pain, NVD, abdominal pain, or calf tenderness. We discussed her discharge planning and appropriate follow-up with [facility] for likely hysterectomy. Case management has provided resources for her to obtain insurance and she has been provided an [facility] referral. Patient currently reports that this is the "least amount of bleeding she has had in over a year." She reports that she has only had to use 1 pad last 24 hours. Objective Vitals Vital Signs Date Time Temp Pulse Resp B/P (MAP) Pulse Ox O2 Delivery O2 Flow Rate FiO2 08/01/17 08:00 97.3 83 16 185/88 (120) 100 08/01/17 00:00 98.8 84 18 142/72 (95) 99 07/31/17 23:08 98.8 53 20 142/72 100 07/31/17 22:00 100 07/31/17 20:18 98.2 83 18 136/77 100 07/31/17 20:00 97.7 87 20 140/84 (102) 100 07/31/17 16:51 99.5 91 18 127/64 100 07/31/17 16:00 99.5 91 18 127/64 (85) 100 07/31/17 12:48 97.4 88 20 156/74 99 07/31/17 12:23 98.1 90 17 139/77 100 07/31/17 12:00 98.1 90 20 139/77 (97) 100 I/O 07/31/17 07/31/17 07/31/17 08/01/17 08/01/17 08/01/17 07:00 15:00 23:00 07:00 15:00 23:00 Intake Total 810 ml 2400 ml 240 ml Balance 810 ml 2400 ml 240 ml Intake Oral 1200 ml 240 ml Packed Cells 800 ml 1200 ml Blood Product IV Normal Saline Flush 10 ml # Voids 3 4 2 # Bowel Movements 0 1 # Sanitary Pads 1 Pads Result Diagram: 08/01/1723408/01/17234 Imaging GENERAL: Well-nourished, well-developed patient lying in bed in no acute distress. SKIN: Improved color. Cool and dry.. No rash. HEENT: Atraumatic, normocephalic with EOMI. Improved pale sclera. MMM. No rhinorrhea. No LAD or JVD appreciated. CARDIOVASCULAR: Regular rate and rhythm. Flow murmur resolved with blood transfusion. No MGR appreciated. RESPIRATORY: Clear to auscultation bilaterally with no CRW. No increased work of breathing. GASTROINTESTINAL: Abdomen soft, nondistended with positive bowel sounds. Patient was improved lower abdominal tenderness.. No hepatosplenomegaly appreciated. MUSCULOSKELETAL: No cyanosis or edema. Strength grossly WNL. Left shoulder: Range of motion intact, but movement does elicit pain. No trauma on inspection. No loss of sensation with 2+ pulses. Range of motion and pain improved. Left hip: No trauma on inspection without hematoma. Patient ambulating well. No loss of sensation with 2+ pulses. NEURO/PSYCH: Afocal. Awake, alert, and oriented x3. Normal speech and judgment. Cranial nerves 2 through 12 intact. Range of motion and sensation intact. A/P Assessment and Plan Mrs. Randall is a 47 y/o admitted for symptomatic anemia requiring blood transfusion. Discharge Planning Today with OB and PCP follow-up. Repeat CBC in 1 week. Update: Patient be discharged home today as her headache has resolved with blood pressure within normal limits. Problem List: (1) Anemia ICD Codes: D64.9 - Anemia, unspecified Status: Acute Plan: Patient admitted for symptomatic anemia secondary to abnormal vaginal bleeding Imaging/studies/orders: -Patient transfused 5 units PRBC -CBC: 8.8/28.2 -Previous Ultrasound: Enlarged heterogeneous uterus with leiomyomatous change. Decreased echogenicity and lack of definition of the cervix. A mass could have this appearance. This area measures approximately 4.6 cm in greatest dimension. This area could be better defined with a pelvic MRI. -Previous Pap smear: Negative for intraepithelial lesion or malignancy. Reactive cellular changes associated with repair. HPV screen negative. -Pelvic MRI: Enlarged leiomyomatous uterus with abdominal intramural leiomyomas. Largest in the uterine body measuring 2.2 x 6.5 x 8.5 cm. Second largest in the right lower uterine segment and more horizontal in origin measuring 2.4 x 6.6 x 2.4 with subserosal component. No significant pelvic adenopathy. -Patient follow-up with [facility] as an outpatient for further workup and possible surgical intervention, prescription given for oral iron (2) Fall ICD Codes: W19.XXXA - Unspecified fall, initial encounter Status: Acute Plan: Patient with initial fall due to symptomatic anemia onto the left side -Left shoulder x-ray: Small rounded calcified density noted lateral to the humeral head. Differential considerations include avulsion fracture versus calcified tendinosis, although this does not have the typical appearance of an avulsion fracture. -Left hip x-ray: No acute fracture or dislocation. Suspect 2 cm calcified uterine leiomyoma. (3) Nutrition, metabolism, and development symptoms ICD Codes: R63.8 - Other symptoms and signs concerning food and fluid intake Status: Acute Plan: Fluids: Discontinued as tolerating oral fluids Diet: Regular diet as tolerated Electrolytes: Within normal limits (4) Medical contraindication to deep vein thrombosis (DVT) prophylaxis ICD Codes: Z53.09 - Procedure and treatment not carried out because of other contraindication Status: Acute Plan: Patient currently admitted for symptomatic anemia secondary to vaginal bleeding, hold pharmacologic DVT prophylaxis at this time SCDs Problem Qualifiers (1) Anemia: Qualified Codes: D62 - Acute posthemorrhagic anemia (2) Fall: Qualified Codes: W19.XXXA - Unspecified fall, initial encounter Christiano Viramontes MD R2 Aug 01, 2017 09:55
[2017-08-01 10:23] VITALS: BP 166/95
[2017-08-01 12:00] VITALS: BP 130/67; PULSE 90; RESP 17; TEMP 96.8; O2SAT 99
== END 2017-08-01 15:04 | disposition home or self-care (01) | DRG 812 ==
LOC: NEPC 14:03 → OBSVTOIN 17:04 → NEDA 17:04 → N07B 20:09
PROVIDERS: ADMIT Family Medicine; ATTEND Family Medicine
PROC: 30233N1 Transfusion of Nonautologous Red Blood Cells into Peripheral Vein, Percutaneous Approach (ICD-10-PCS; principal; 2017-07-30)
DX: D62 Acute posthemorrhagic anemia (principal); I10 Essential (primary) hypertension; D25.1 Intramural leiomyoma of uterus; N93.9 Abnormal uterine and vaginal bleeding, unspecified; R51 Headache; R55 Syncope and collapse; R63.4 Abnormal weight loss; Z91.81 History of falling
CPT/HCPCS: 36430; 72197; 73030; 73501; 80048; 80053; 81001; 83540; 83550; 84702; 85025; 85610; 85730; 86850; 86900; 86901; 86920; 86922; 93005; 94150; A9579; J7030; P9016

== ENCOUNTER 2017-09-02 17:12 | Emergency (ER) | payer SELFPAY ==
[~2017-09-02] VITALS: Ht 175.3 cm; Wt 81.5 kg
[2017-09-02 17:12] VITALS: BP 180/94; PULSE 88; RESP 18; TEMP 98.4; O2SAT 98
[~2017-09-02 17:12] MED LIST: FERR324T4 PO
[2017-09-02] MEDS ORDERED: AZITHROMYCIN PWD FOR SUSP 1 GM PACKET PO ONE (20:15)
[2017-09-02] MEDS ORDERED: cefTRIAXone 250 MG VIAL IM ONE (20:15)
[2017-09-02] MEDS ORDERED: LIDOCAINE HCL 1% 50 ML VIAL IM ONE (20:15)
[2017-09-02] MEDS ORDERED: cefTRIAXone 250 MG VIAL IV ONE (20:45)
--- NOTE | 2017-09-02 20:54 | PD ---
HPI Chief Complaint: Ingot Header Problem/Complaint Time Seen by Provider: 20:04 Travel History International Travel<30 days: No Contact w/Intl Traveler<30days: No Traveled to known affect area: No History of Present Illness HPI 47-year-old black female with a long history of uterine fibroids presents emergency Department with complaints of tissue coming out of her vagina today. The patient states that she had to push it back inside. She has had persistent vaginal bleeding and lower pelvic discomfort. She was minutes at the hospital approximately one month ago and had a blood transfusion due to her long- standing uterine fibroids. Her hemoglobin had gone down to 4. When she was discharged and was 8. She does admit to some mild dizziness and weakness. She states that is not nearly as bad as it was last month. She denies any fever chills. No nausea vomiting. She's been eating and drinking well. She is urinating normally. She denies any other vaginal discharge other than the bleeding. Symptoms are moderate. Alleviated by pushing the tissue back inside. No exacerbating activity. PFSH Past Medical History Narrative Medical Anemia with uterine fibroids Cardiovascular Problems: No Diminished Hearing: No Endocrine: No Genitourinary: No Musculoskeletal: No Neurologic: No Reproductive: No Respiratory: No Tetanus Vaccination: Unknown ?: Not Tubal Ligation: Yes Past Surgical History Narrative Surgical Cervical conization, tubal ligation Gynecologic Surgery: Yes Social History Alcohol Use: No Tobacco Use: No Substance Use: No Allergies-Medications (Allergen,Severity, Reaction): Coded Allergies: LON Inhibitors (Verified Allergy, Severe, Angioedema , 07/31/17) Reported Meds & Prescriptions Reported Meds & Active Scripts Active Ferrous Sulfate DR (Ferrous Sulfate) 324 Mg Tabdr 324 Mg PO DAILY Review of Systems Except as stated in HPI: all other systems reviewed are Neg Physical Exam Narrative GENERAL: Well-developed, well-nourished in no acute distress. Nontoxic appearing. HEAD: Normocephalic, atraumatic. EYES: Pupils equal round and reactive. Extraocular motions intact. No scleral icterus. No injection or drainage. ENT: TMs clear without erythema. The external auditory canals clear. Nose: clear . Posterior pharynx is pink and moist. No tonsillar edema or exudate. Uvula midline. Airway patent. NECK: Trachea midline.Supple, nontender, moves head freely. No central bony tenderness or spasm. CARDIOVASCULAR: Regular rate and rhythm without murmurs, gallops, or rubs. RESPIRATORY: Clear to auscultation. Breath sounds equal bilaterally. No wheezes , rales, or rhonchi. GASTROINTESTINAL: Abdomen soft, non-tender, nondistended. No hepato-splenomegaly , or palpable masses. No guarding. EXTREMITIES: No clubbing, cyanosis, or edema. No joint tenderness, effusion, or edema noted. BACK: Nontender without deformity or crepitance. No flank tenderness. Data Data Last Documented VS Vital Signs Date Time Temp Pulse Resp B/P (MAP) Pulse Ox O2 Delivery O2 Flow Rate FiO2 09/02/17 17:12 98.4 88 18 180/94 (122) 98 Room Air Orders Orders Ed Urine Pregnancytest Poc (09/02/17 20:05) Complete Blood Count With Diff (09/02/17 20:05) Comprehensive Metabolic Panel (09/02/17 20:05) Urinalysis - C+S If Indicated (09/02/17 20:05) Wet Prep Profile (09/02/17 20:05) Gc And Chlamydia Pcr (09/02/17 20:05) Azithromycin Powd Pack (Zithromax Powd P (09/02/17 20:15) Ceftriaxone Inj (Rocephin Inj) (09/02/17 20:15) Lidocaine 1% Inj (50 Ml) (Xylocaine 1% I (09/02/17 20:15) Ceftriaxone Inj (Rocephin Inj) (09/02/17 20:45) Ed Discharge Order (09/02/17 21:57) Labs Laboratory Tests Test 09/02/17 20:20 09/02/17 20:30 White Blood Count 10.3 TH/MM3 Red Blood Count 2.85 MIL/MM3 Hemoglobin 7.2 GM/DL Hematocrit 21.9 % Mean Corpuscular Volume 76.8 FL Mean Corpuscular Hemoglobin 25.3 PG Mean Corpuscular Hemoglobin Concent 32.9 % Red Cell Distribution Width 26.2 % Platelet Count 530 TH/MM3 Mean Platelet Volume 8.5 FL Neutrophils (%) (Auto) 66.9 % Lymphocytes (%) (Auto) 22.3 % Monocytes (%) (Auto) 6.5 % Eosinophils (%) (Auto) 3.2 % Basophils (%) (Auto) 1.1 % Neutrophils # (Auto) 6.9 TH/MM3 Lymphocytes # (Auto) 2.3 TH/MM3 Monocytes # (Auto) 0.7 TH/MM3 Eosinophils # (Auto) 0.3 TH/MM3 Basophils # (Auto) 0.1 TH/MM3 CBC Comment AUTO DIFF Blood Urea Nitrogen 6 MG/DL Creatinine 0.67 MG/DL Random Glucose 88 MG/DL Total Protein 7.7 GM/DL Albumin 3.3 GM/DL Calcium Level 9.0 MG/DL Alkaline Phosphatase 53 U/L Aspartate Amino Transf (AST/SGOT) 15 U/L Alanine Aminotransferase (ALT/SGPT) 14 U/L Total Bilirubin 0.2 MG/DL Sodium Level 137 MEQ/L Potassium Level 3.5 MEQ/L Chloride Level 104 MEQ/L Carbon Dioxide Level 25.5 MEQ/L Anion Gap 8 MEQ/L Estimat Glomerular Filtration Rate 113 ML/MIN Urine Color YELLOW Urine Turbidity CLEAR Urine pH 5.5 Urine Specific [place] 1.019 Urine Protein NEG mg/dL Urine Glucose (UA) NEG mg/dL Urine Ketones NEG mg/dL Urine Occult Blood TRACE Urine Nitrite NEG Urine Bilirubin NEG Urine Urobilinogen LESS THAN 2.0 MG/DL Urine Leukocyte Esterase SMALL Urine RBC 15 /hpf Urine WBC 1 /hpf Urine Squamous Epithelial Cells 1 /hpf Urine Amorphous Sediment RARE Urine Mucus FEW /lpf Microscopic Urinalysis Comment CULT NOT INDICATED Clue Cells (Wet Prep) NONE SEEN Vaginal Trichomonas (Wet Prep) NONE SEEN Vaginal Yeast (Wet Prep) NONE SEEN MDM Medical Decision Making Medical Screen Exam Complete: Yes Emergency Medical Condition: Yes Medical Record Reviewed: Yes Interpretation(s) Laboratory Tests Test 09/02/17 20:20 09/02/17 20:30 White Blood Count 10.3 TH/MM3 Red Blood Count 2.85 MIL/MM3 Hemoglobin 7.2 GM/DL Hematocrit 21.9 % Mean Corpuscular Volume 76.8 FL Mean Corpuscular Hemoglobin 25.3 PG Mean Corpuscular Hemoglobin Concent 32.9 % Red Cell Distribution Width 26.2 % Platelet Count 530 TH/MM3 Mean Platelet Volume 8.5 FL Neutrophils (%) (Auto) 66.9 % Lymphocytes (%) (Auto) 22.3 % Monocytes (%) (Auto) 6.5 % Eosinophils (%) (Auto) 3.2 % Basophils (%) (Auto) 1.1 % Neutrophils # (Auto) 6.9 TH/MM3 Lymphocytes # (Auto) 2.3 TH/MM3 Monocytes # (Auto) 0.7 TH/MM3 Eosinophils # (Auto) 0.3 TH/MM3 Basophils # (Auto) 0.1 TH/MM3 CBC Comment AUTO DIFF Blood Urea Nitrogen 6 MG/DL Creatinine 0.67 MG/DL Random Glucose 88 MG/DL Total Protein 7.7 GM/DL Albumin 3.3 GM/DL Calcium Level 9.0 MG/DL Alkaline Phosphatase 53 U/L Aspartate Amino Transf (AST/SGOT) 15 U/L Alanine Aminotransferase (ALT/SGPT) 14 U/L Total Bilirubin 0.2 MG/DL Sodium Level 137 MEQ/L Potassium Level 3.5 MEQ/L Chloride Level 104 MEQ/L Carbon Dioxide Level 25.5 MEQ/L Anion Gap 8 MEQ/L Estimat Glomerular Filtration Rate 113 ML/MIN Urine Color YELLOW Urine Turbidity CLEAR Urine pH 5.5 Urine Specific [place] 1.019 Urine Protein NEG mg/dL Urine Glucose (UA) NEG mg/dL Urine Ketones NEG mg/dL Urine Occult Blood TRACE Urine Nitrite NEG Urine Bilirubin NEG Urine Urobilinogen LESS THAN 2.0 MG/DL Urine Leukocyte Esterase SMALL Urine RBC 15 /hpf Urine WBC 1 /hpf Urine Squamous Epithelial Cells 1 /hpf Urine Amorphous Sediment RARE Urine Mucus FEW /lpf Microscopic Urinalysis Comment CULT NOT INDICATED Clue Cells (Wet Prep) NONE SEEN Vaginal Trichomonas (Wet Prep) NONE SEEN Vaginal Yeast (Wet Prep) NONE SEEN Differential Diagnosis Differential diagnoses: Uterine prolapse, cystocele, rectocele, foreign body, UTI, anemia, mass Narrative Course IV access obtained. Routine laboratory tests for analysis. Pelvic exam performed. The patient's hemoglobin here is 7 today. She is not symptomatic here. I feel the patient is stable for discharge. Patient's history is consistent with a partial prolapse of her uterus. The patient has known large uterine fibroids. She had a MRI of her pelvis last month which showed very large uterine fibroids. Patient is aware that she needs morbid definitive hysterectomy to resolve her symptoms. She is in the process of getting a rotary cutter. Procedures Procedure Narrative Pelvic exam: This is performed in the presence of the nurse. Patient has bleeding coming from the vagina. Speculum exam reveals a little blood in the vaginal vault. This is removed with [place] swab. Patient has large protrusion of the uterus into the vagina. No masses or lesions. Cultures obtained. Bimanual exam reveals a very large uterus consistent with approximately 12 cm. No cervical motion tenderness. No adnexal mass. No adnexal pain. Diagnosis Primary Impression: Incomplete uterine prolapse Additional Impression: Uterine fibroid Qualified Codes: D25.9 - Leiomyoma of uterus, unspecified Referrals: [facility] 1 week Patient Instructions: General Instructions Additional Instructions: Rest. No straining. Follow-up with the health Department. Return to the ER for emergencies Med/Other Pt SpecificInfo: No Change to Meds Disposition: 01 DISCHARGE HOME Condition: Stable Richie Langford Sep 02, 2017 20:54
[2017-09-02 20:56] LABS: AMORPHOUS SEDIMENT, URINE RARE; BILIRUBIN, URINE NEG (NEG); BLOOD, URINE TRACE (NEG); GLUCOSE,URINE NEG (NEG); KETONE, URINE NEG (NEG); MUCUS URINE FEW /lpf (OCC); NITRITE,URINE NEG (NEG); PH, URINE 5.5 (5.0-8.5); SQUAMOUS EPITHELIAL CELL URINE 1 /hpf (0-5); URINE COLOR YELLOW (YELLW/STRAW); URINE LEUKOCYTE ESTERASE SMALL (NEG)
[2017-09-02 21:26] LABS: AUTOMATED NEUTROPHIL # 6.9 TH/MM3 (1.8-7.7); BASOPHIL # 0.1 TH/MM3 (0-0.2); BASOPHIL % 1.1 % (0.0-2.0); EOSINOPHIL # 0.3 TH/MM3 (0-0.4); EOSINOPHIL % 3.2 % (0.0-4.0); HEMATOCRIT 21.9 % (35.0-46.0); HEMOGLOBIN 7.2 GM/DL (11.6-15.3); LYMPH % 22.3 % (9.0-44.0); LYMPHOCYTE # 2.3 TH/MM3 (1.0-4.8); MEAN CELL VOLUME 76.8 FL (80.0-100.0); MEAN CORPUSCULAR HEMOGLOBIN 25.3 PG (27.0-34.0); MEAN CORPUSCULAR HGB CONC 32.9 % (32.0-36.0); MEAN PLATELET VOLUME 8.5 FL (7.0-11.0); MONO % 6.5 % (0.0-8.0); MONOCYTE # 0.7 TH/MM3 (0-0.9); NEUT % 66.9 % (16.0-70.0); PLATELET COUNT 530 TH/MM3 (150-450); RED BLOOD COUNT 2.85 MIL/MM3 (4.00-5.30); RED CELL DISTRIBUTION WIDTH 26.2 % (11.6-17.2); WHITE BLOOD COUNT 10.3 TH/MM3 (4.0-11.0)
[2017-09-02 21:42] LABS: ALBUMIN 3.3 GM/DL (3.4-5.0); AST (GOT) 15 U/L (15-37); BICARBONATE 25.5 MEQ/L (21.0-32.0); BLOOD UREA NITROGEN 6 MG/DL (7-18); CHLORIDE 104 MEQ/L (98-107); CREATININE 0.67 MG/DL (0.50-1.00); GLOMERULAR FILTRATION RATE 113 ML/MIN (>89); GLUCOSE,RANDOM 88 MG/DL (74-106); SODIUM (NA) 137 MEQ/L (136-145)
[2017-09-02 21:43] LABS: ALT (GPT) 14 U/L (10-53)
[2017-09-02 21:45] LABS: ALKALINE PHOSPHATASE 53 U/L (45-117); TOTAL BILIRUBIN ADULT 0.2 MG/DL (0.2-1.0); TOTAL PROTEIN 7.7 GM/DL (6.4-8.2)
[2017-09-02 22:06] LABS: OVALOCYTES 2+ (NORMAL)
== END 2017-09-02 22:40 | disposition home or self-care (01) ==
LOC: NEPD 17:12
DX: N81.2 Incomplete uterovaginal prolapse (principal); D25.9 Leiomyoma of uterus, unspecified; D63.8 Anemia in other chronic diseases classified elsewhere
CPT/HCPCS: 80053; 81001; 84703; 85025; 87210; 87491; 87591; 99284